=== PATIENT | female | born 2000 | race Caucasian/White ===

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

== ENCOUNTER 2024-09-01 07:27 | Inpatient (IN) ==
[2024-09-01 07:55] LABS: Hematocrit (blood only) 34.5 % (37.0-47.0); Hemoglobin 11.8 g/dl (12.0-16.0); Mean Corpuscular Hemoglobin 29.6 pg (25.0-34.0); Mean Corpuscular Hgb Conc 34.2 g/dL (32.0-36.0); Mean Corpuscular Volume 86.5 fL (80.0-100.0); Mean Platelet Volume 10.4 fL (9.4-12.4); Platelet Count 196 K/uL (130-400); RDW Coefficient of Variation 15.1 % (11.5-14.5); RDW Standard Deviation 47.6 fL (36.4-46.3); Red Blood Count 3.99 M/uL (4.20-5.40); White Blood Count 9.87 K/ul (4.8-10.8)
--- NOTE | 2024-09-01 09:08 | Procedure Note ---
Procedure Note Date of Service September 01, 2024 monitoring was used to ensure reassuring status. The patient was verbally consented for placement of a horne for cervical ripening, with discussion of risks, benefits and alternatives. All her questions were answered. Her legs were placed in lithotomy position. A lubricated, gloved hand was used to examine the cervix. A stylet was lubricated and inserted into a horne catheter to give it stiffness, and the horne catheter was then advanced along my fingers until it reached the external cervical os. The horne was then fed forward off of the stylet, which was itself never moved beyond the external os, such that the soft catheter advanced into the uterine cavity outside of the amnion until the balloon was definitely above the internal cervical os. The balloon was then inflated using sterile water to 30cc volume. Gentle traction was used to seat the balloon downward against the internal cervical os. My hand and the stylet were removed from the vagina, and the horne was secured to the patient's leg with a standard horne holding sticker. There was no significant bleeding or leakage of fluid. The heart tones remained reassuring after this process, which the patient tolerated well. Exam 1/th/hi/moderate/mid-position. EFW 6-7lb. FHT Cat 1. [place]ola quiet. [facility] Procedure Codes (Charges) Misx Procedure Codes 42370 Placement of cervical dilator Coding CPT Codes Misx Procedure Codes - 44376 Placement of cervical dilator: 09140 Placement of cervical dilator ([id number]) Additional Codes Date of Service ([facility].SURGERY)
--- NOTE | 2024-09-01 18:03 | Labor Progress Brief Note ---
Date of Service September 01, 2024 Subjective S: Tolerating contractions, considering epidural. O: 3-4/90/-2, Olsen out with gentle tug. FHT Cat 1, [place] Q4, Pit @ 2 A/P: Increase pitocin to Q2m ctx, epidural on request, likely AROM next check. Assessment & Plan Admission and Anticipated Discharge Date Admission Date: September 01, 2024 Results & Data Vital Signs (Past 12 Hours) Vital Signs Temp Pulse Resp BP 09/01/24 17:38 75 09/01/24 17:38 105/62 09/01/24 16:40 63 09/01/24 16:40 123/68 09/01/24 15:38 56 L 09/01/24 15:38 122/74 09/01/24 14:23 20 09/01/24 14:23 98.1 F 20 09/01/24 14:23 57 L 09/01/24 14:23 106/66 09/01/24 13:15 16 09/01/24 13:15 16 09/01/24 13:15 64 09/01/24 13:15 126/70 09/01/24 12:15 58 L 09/01/24 12:15 113/73 09/01/24 11:25 20 09/01/24 11:25 20 09/01/24 11:25 75 09/01/24 11:25 129/79 09/01/24 10:37 57 L 09/01/24 10:37 113/68 09/01/24 09:12 20 09/01/24 09:12 20 09/01/24 09:12 68 09/01/24 09:12 109/68 09/01/24 07:53 98.2 F 73 20 107/73 09/01/24 07:45 98.2 F 73 20 107/73 Coding Level of Care Code None
--- NOTE | 2024-09-01 19:31 | Anesthesiology Consultation ---
Date of Service September 01, 2024 Assessment & Plan (1) Encounter for pre-operative examination: Chart Review Chart Review: Patient NOT seen in Pre Admission Testing and Acceptable Risk for Labor Epidural Consults Requested none History Height/Weight Height: 4 ft 11 in Weight: 65.771 kg Allergies Allergy/AdvReac Type Severity Reaction Status Date / Time No Known Allergies Allergy Verified 08/31/24 13:02 Medications Home Medications Medication Instructions Recorded Confirmed Last Taken PNV no.[id number] 1 tab PO DAILY 01/13/24 09/01/24 08/31/24 09:00 [ Gummies] Active Medications Generic Name Dose Route Start Last Admin Trade Name Freq PRN Reason Stop Dose Admin Oxytocin 30 units in 500 mls @ 8 mls/hr 09/01/24 07:32 09/01/24 19:06 Pitocin 30 Units/Nss IV 09/03/24 07:31 0.48 units/hr .Q24H PRN 8 mls/hr Labor Induction/Augmentation Titration Protocol 0.48 UNITS/HR Lactated Ringer's 1,000 mls @ 125 mls/hr 09/01/24 07:32 09/01/24 19:06 Lr IV 09/03/24 07:31 125 mls/hr .Q8H PRN Infusion L&D Protocol Protocol Past Medical History Medical History Ureteral stent present Kidney calculus Varicella vaccination Vasovagal syncope Asthmatic bronchitis PMDD (premenstrual dysphoric disorder) Generalized anxiety disorder DUB (dysfunctional uterine bleeding) Adjustment reaction Sialadenitis Pigmented skin lesion of uncertain nature Atypical nevus of back Epigastric abdominal pain Syncope Allergic rhinitis Asthma, mild intermittent Atopic dermatitis Past Family History Family History Sister Asthma Ovarian cyst Father Hypertension Denies family history of Ovarian cancer Breast cancer Colorectal cancer Past Surgical History Surgical History S/P wisdom tooth extraction Social History Smoking Status: Never smoker Do You Dip or Chew Tobacco: No Hx Alcohol Use: No Hx Substance Use: No Physical Exam Vital Signs Last Vital Signs Temp 98.1 F 09/01/24 14:23 Pulse 55 L 09/01/24 19:10 Resp 20 09/01/24 14:23 BP 109/60 09/01/24 19:10 Testing Laboratory Results 09/01/24 07:44 Blood Type O Positive 09/01/24 07:44 Antibody Screen NEGATIVE 09/01/24 07:44
--- NOTE | 2024-09-02 06:05 | Delivery Summary ---
Vaginal Delivery Summary Date of Service September 02, 2024 Vaginal Delivery Summary DIAGNOSES: 1. Ren intrauterine at 40w1d gestation. 2. Induction of Labor. 3. Group B Streptococcus Neg. PROCEDURE: Spontaneous vaginal delivery without laceration. SURGEON: Carla Saha MD. DATAPOWER CONSULTANT: None. ESTIMATED BLOOD LOSS: 200 mL. COMPLICATIONS: None. PLACENTA: Spontaneous and intact with a 3-vessel cord. DISPOSITION: Stable to labor and delivery. DESCRIPTION: The patient pushed well and brought the head to in OA, slightly asynclitic position. The 's head was allowed to deliver with contraction force and no further active pushing, with the perineum protected during this time. There was no nuchal cord. The right shoulder was anterior. The shoulders and body delivered without any difficulty, and the infant was placed on the maternal abdomen. It was vigorous and moving all extremities, and making respiratory efforts. The cord was doubly clamped by the MD and then cut by the FOB. The placenta delivered spontaneously and was noted to be intact and with a 3VC. The cervix, vagina and perineum were examined and were found to be without defect requiring repair. The fundus was firm and lochia minimal immediately after delivery. [facility] Vaginal Delivery Charge Vaginal Delivery Codes: 40533 global code for the antepartum, delivery, and post-
--- NOTE | 2024-09-02 08:33 | Anesthesiology Progress Note ---
Date of Service September 02, 2024 Anesthesia Post Procedure Vital Signs Vital Signs: Temp Pulse Resp BP Pulse Ox 09/02/24 08:27 60 107/65 09/02/24 08:12 75 113/64 09/02/24 07:57 60 98/61 L 09/02/24 07:45 20 09/02/24 07:42 55 L 103/56 L 09/02/24 07:27 60 119/58 L 09/02/24 07:13 36.5 C 81 20 114/56 L 09/02/24 06:57 83 123/85 09/02/24 06:42 64 100/68 09/02/24 05:58 93 H 118/71 09/02/24 05:53 92 H 99 09/02/24 05:48 102 H 98 09/02/24 05:44 91 H 88 L 09/02/24 05:43 121 H 98 09/02/24 05:38 101 H 100 09/02/24 05:33 112 H 85 L 09/02/24 05:28 85 100 09/02/24 05:27 72 128/83 90 09/02/24 05:23 122 H 100 09/02/24 05:18 91 H 99 09/02/24 05:17 112 H 119/75 09/02/24 05:16 96 H 94 09/02/24 05:13 70 99 09/02/24 05:08 51 L 98 09/02/24 05:03 52 L 98 09/02/24 04:58 55 L 113/70 99 09/02/24 04:53 53 L 97 09/02/24 04:48 54 L 98 09/02/24 04:43 53 L 98 09/02/24 04:42 52 L 103/67 09/02/24 04:38 56 L 97 09/02/24 04:33 53 L 97 09/02/24 04:29 55 L 111/67 09/02/24 04:28 55 L 97 09/02/24 04:23 53 L 98 09/02/24 04:18 56 L 99 09/02/24 04:13 56 L 100 09/02/24 04:12 57 L 120/77 09/02/24 04:08 57 L 100 09/02/24 04:07 61 94 09/02/24 04:03 55 L 100 09/02/24 03:58 59 L 100 09/02/24 03:57 61 137/79 09/02/24 03:53 67 100 09/02/24 03:48 81 100 09/02/24 03:43 83 100 09/02/24 03:38 65 100 09/02/24 03:34 96 H 93 09/02/24 03:33 98 H 100 09/02/24 03:30 36.7 C 09/02/24 03:28 60 98 09/02/24 03:26 100 H 86 L 09/02/24 03:23 69 98 09/02/24 03:19 94 H 90 09/02/24 03:18 87 100 09/02/24 03:13 51 L 99 09/02/24 03:12 57 L 94/55 L 09/02/24 03:08 56 L 99 09/02/24 03:03 55 L 99 09/02/24 02:58 55 L 99 09/02/24 02:57 58 L 104/56 L 09/02/24 02:53 58 L 99 09/02/24 02:48 57 L 99 09/02/24 02:43 100 09/02/24 02:43 60 09/02/24 02:43 55 L 98/56 L 09/02/24 02:38 57 L 100 09/02/24 02:33 56 L 100 09/02/24 02:29 55 L 100/55 L 09/02/24 02:28 53 L 100 09/02/24 02:23 63 100 09/02/24 02:18 63 100 09/02/24 02:13 83 106/62 100 09/02/24 02:08 70 100 09/02/24 02:04 50 L 98/58 L 09/02/24 02:03 49 L 98 09/02/24 01:58 99 09/02/24 01:58 52 L 09/02/24 01:58 53 L 92/53 L 09/02/24 01:53 53 L 99 09/02/24 01:48 59 L 100 09/02/24 01:45 61 93 09/02/24 01:43 54 L 100/64 99 09/02/24 01:38 53 L 99 09/02/24 01:34 66 93 09/02/24 01:33 57 L 100 09/02/24 01:28 59 L 100 09/02/24 01:27 71 102/56 L 09/02/24 01:23 79 100 09/02/24 01:18 53 L 98 09/02/24 01:13 54 L 98 09/02/24 01:12 57 L 107/65 09/02/24 01:08 49 L 99 09/02/24 01:03 52 L 99 09/02/24 00:58 55 L 106/60 98 09/02/24 00:53 53 L 100 09/02/24 00:48 61 99 09/02/24 00:43 67 104/64 98 09/02/24 00:38 66 99 09/02/24 00:33 64 99 09/02/24 00:29 92 H 134/85 09/02/24 00:28 77 100 09/02/24 00:23 62 98 09/02/24 00:18 127 H 100 09/02/24 00:13 94 H 100 09/02/24 00:12 126 H 114/71 09/02/24 00:08 103 H 100 09/02/24 00:03 73 100 09/01/24 23:59 69 09/01/24 23:59 107/65 09/01/24 23:58 100 09/01/24 23:58 70 09/01/24 23:53 100 09/01/24 23:53 65 09/01/24 23:48 100 09/01/24 23:48 67 09/01/24 23:43 100 09/01/24 23:43 71 09/01/24 23:42 64 09/01/24 23:42 115/75 09/01/24 23:38 100 09/01/24 23:38 69 09/01/24 23:33 100 09/01/24 23:33 76 09/01/24 23:28 99 09/01/24 23:28 69 09/01/24 23:28 77 09/01/24 23:28 105/68 09/01/24 23:24 90 09/01/24 23:24 85 09/01/24 23:23 100 09/01/24 23:23 68 09/01/24 23:18 100 09/01/24 23:18 103 H 09/01/24 23:15 36.5 C 85 90 05/22/25 23:13 100 09/01/24 23:13 81 09/01/24 23:13 111/72 09/01/24 23:08 100 09/01/24 23:08 73 09/01/24 23:03 99 09/01/24 23:03 48 L 09/01/24 22:59 47 L 09/01/24 22:59 98/58 L 09/01/24 22:58 100 09/01/24 22:58 49 L 09/01/24 22:53 100 09/01/24 22:53 52 L 09/01/24 22:48 100 09/01/24 22:48 51 L 09/01/24 22:43 99 09/01/24 22:43 53 L 09/01/24 22:43 109/64 09/01/24 22:38 99 09/01/24 22:38 69 09/01/24 22:33 100 09/01/24 22:33 68 09/01/24 22:29 49 L 09/01/24 22:29 101/59 L 09/01/24 22:28 99 09/01/24 22:28 53 L 09/01/24 22:23 99 09/01/24 22:23 53 L 09/01/24 22:18 100 09/01/24 22:18 50 L 09/01/24 22:13 100 09/01/24 22:13 53 L 09/01/24 22:12 54 L 09/01/24 22:12 108/57 L 09/01/24 22:08 100 09/01/24 22:08 59 L 09/01/24 22:03 100 09/01/24 22:03 56 L 09/01/24 21:58 100 09/01/24 21:58 58 L 09/01/24 21:58 55 L 09/01/24 21:58 119/72 09/01/24 21:53 100 09/01/24 21:53 66 09/01/24 21:48 99 09/01/24 21:48 51 L 09/01/24 21:43 99 09/01/24 21:43 52 L 09/01/24 21:43 116/65 09/01/24 21:38 99 09/01/24 21:38 49 L 09/01/24 21:33 99 09/01/24 21:33 53 L 09/01/24 21:29 60 09/01/24 21:29 122/73 09/01/24 21:28 99 09/01/24 21:28 60 09/01/24 21:23 100 09/01/24 21:23 55 L 09/01/24 21:18 99 09/01/24 21:18 67 09/01/24 21:13 36.8 C 09/01/24 21:13 99 09/01/24 21:13 52 L 09/01/24 21:12 50 L 09/01/24 21:12 108/63 09/01/24 21:08 98 09/01/24 21:08 49 L 09/01/24 21:03 97 09/01/24 21:03 48 L 09/01/24 20:58 98 09/01/24 20:58 51 L 09/01/24 20:57 50 L 09/01/24 20:57 106/62 09/01/24 20:53 98 09/01/24 20:53 53 L 09/01/24 20:48 99 09/01/24 20:48 67 09/01/24 20:43 99 09/01/24 20:43 50 L 09/01/24 20:42 51 L 09/01/24 20:42 99/60 L 09/01/24 20:38 100 09/01/24 20:38 55 L 09/01/24 20:33 100 09/01/24 20:33 56 L 09/01/24 20:28 100 09/01/24 20:28 60 09/01/24 20:28 103/55 L 09/01/24 20:23 100 09/01/24 20:23 57 L 09/01/24 20:18 100 09/01/24 20:18 62 09/01/24 20:13 100 09/01/24 20:13 64 09/01/24 20:08 100 09/01/24 20:08 69 09/01/24 20:03 100 09/01/24 20:03 61 09/01/24 19:58 100 09/01/24 19:58 66 09/01/24 19:56 67 09/01/24 19:56 114/61 09/01/24 19:54 65 09/01/24 19:54 101/56 L 09/01/24 19:53 100 09/01/24 19:53 69 09/01/24 19:52 61 09/01/24 19:52 103/56 L 09/01/24 19:51 68 09/01/24 19:51 106/58 L 09/01/24 19:48 100 09/01/24 19:48 83 09/01/24 19:46 76 09/01/24 19:46 112/61 09/01/24 19:44 69 09/01/24 19:44 115/56 L 09/01/24 19:43 100 09/01/24 19:43 66 09/01/24 19:42 77 09/01/24 19:42 123/70 09/01/24 19:10 55 L 09/01/24 19:10 109/60 09/01/24 19:00 36.7 C 09/01/24 18:35 55 L 09/01/24 18:35 121/67 09/01/24 17:38 75 09/01/24 17:38 105/62 09/01/24 16:40 63 09/01/24 16:40 123/68 09/01/24 15:38 56 L 09/01/24 15:38 122/74 09/01/24 14:23 20 09/01/24 14:23 36.7 C 20 09/01/24 14:23 57 L 09/01/24 14:23 106/66 09/01/24 13:15 16 09/01/24 13:15 16 09/01/24 13:15 64 09/01/24 13:15 126/70 09/01/24 12:15 58 L 09/01/24 12:15 113/73 09/01/24 11:25 20 09/01/24 11:25 20 09/01/24 11:25 75 09/01/24 11:25 129/79 09/01/24 10:37 57 L 09/01/24 10:37 113/68 09/01/24 09:12 20 09/01/24 09:12 20 09/01/24 09:12 68 09/01/24 09:12 109/68 Transfer of Care Handoff Completed per policy Notes Mental Status: alert / awake / arousable and participated in evaluation Patient Amnestic to Procedure: Yes Nausea / Vomiting: adequately controlled Pain: adequately controlled Airway Patency, RR, SpO2: stable & adequate BP & HR: stable & adequate Hydration State: stable & adequate Anesthetic Complications: no major complications apparent and Pt Satisfied with anesthetic care
--- NOTE | 2024-09-02 08:33 | Anesthesia Procedure Note ---
Date of Service September 02, 2024 Anesthesia Post Epidural Note Vital Signs Vital Signs: Temp Pulse Resp BP Pulse Ox 36.5 C 60 20 107/65 99 09/02/24 07:13 09/02/24 08:27 09/02/24 07:45 09/02/24 08:27 09/02/24 05:53 Notes Mental Status: alert / awake / arousable and participated in evaluation Nausea / Vomiting: adequately controlled Pain: adequately controlled Airway Patency, RR, SpO2: stable & adequate BP & HR: stable & adequate Hydration State: stable & adequate Neuraxial Anesthesia: was administered and sensory block resolved Anesthetic Complications: no major complications apparent and Pt Satisfied with anesthetic care Epidural: Removed without complications and With tip intact
--- NOTE | 2024-09-03 08:08 | Obstetrical Progress Note ---
Date of Service September 03, 2024 Assessment & Plan (1) state: Plan Aylin is a 24yo , day 1 s/p uncomplicated . Continue monitoring BP and HR as they were on the low side this AM, however notes this is usual for her and is asymptomatic. Doing well. Continue routine pp care. Encourage ambulation. Pain control with ibuprofen Home tomorrow 09/04 Admission and Anticipated Discharge Date Admission Date: September 01, 2024 Supervising Physician Co-Signing Physician Notes Patient seen with resident and agree with the above findings and plan. Routine care Subjective Aylin is a 24yo , day 1 s/p uncomplicated . Feels well, some soreness. Notes her BP is typically on the low side and not having any lightheadedness, dizziness, nausea. Ambulation: yes Void: urinating, no BM yet Gas: yes Lochia: small Diet: tolerating well Feeding plan: breast Sx: none other than improving soreness Physical Exam Physical Exam: Gen: no acute distress CV: RRR, no m/r/g Resp: clear to auscultation b/l GI/Abd: +BS, fundus firm at lvl of umbilicus, mild tenderness to palpation LE: no edema, nontender to palpation Results & Data Vital Signs (Past 12 Hours) Vital Signs Temp Pulse Resp BP Pulse Ox O2 Del Method 09/03/24 03:15 36.4 C L 56 L 16 98/63 L 96 Room Air 09/02/24 23:01 36.3 C L 62 16 100/65 96 Room Air Resident Activity Tracking Resident Involvement: Resident Care Provided Care Provided: OB Delivery
[2024-09-03 08:29] LABS: Hematocrit (blood only) 30.4 % (37.0-47.0); Hemoglobin 10.3 g/dl (12.0-16.0); Mean Corpuscular Hemoglobin 30.1 pg (25.0-34.0); Mean Corpuscular Hgb Conc 33.9 g/dL (32.0-36.0); Mean Corpuscular Volume 88.9 fL (80.0-100.0); Platelet Count 169 K/uL (130-400); RDW Coefficient of Variation 15.4 % (11.5-14.5); RDW Standard Deviation 49.6 fL (36.4-46.3); Red Blood Count 3.42 M/uL (4.20-5.40); White Blood Count 13.64 K/ul (4.8-10.8)
[2024-09-03 23:40] VITALS: O2SAT 95
[2024-09-04 06:52] LABS: Hematocrit (blood only) 33.8 % (37.0-47.0); Hemoglobin 11.4 g/dl (12.0-16.0)
--- NOTE | 2024-09-04 08:57 | Obstetrical Progress Note ---
Date of Service September 04, 2024 Assessment & Plan (1) state: Day 2 status post vaginal delivery. Patient doing well and stable for discharge. Subjective Ambulation: ambulating normally Voiding: no voiding problems Passing Gas:: Yes Diet Tolerance:: regular diet Lochia:: Moderate Physical Exam Constitutional WD/WN, vitals as above Respiratory normal respiratory effort; no respiratory distress and no labored breathing Cardiovascular Extremities: no calf tenderness Gastrointestinal (Abdomen) Inspection/Auscultation: abdomen normal to inspection; abdomen not distended Percussion/Palpation: abdomen soft; abdomen nontender, no guarding and abdomen not rigid Genitourinary OB Exam Abdomen: + fundal height Fundus: + firm and + relation to umbilicus (Below); not tender or not boggy Results & Data Vital Signs (Past 12 Hours) Vital Signs Temp Pulse Resp BP Pulse Ox O2 Del Method 09/03/24 23:05 37.0 C 52 L 16 123/76 95 Room Air
[2024-09-04 09:22] VITALS: BP 100/66; PULSE 69; RESP 18; TEMP 97.7
== END 2024-09-04 11:30 | disposition home or self-care (01) ==
LOC: 4S1 07:27 → 4E2 09-02 09:49